=== PATIENT | female | born 1955 | race Caucasian/White ===

== ENCOUNTER 2017-06-26 11:09 | Emergency (ER) | payer MEDICAID ==
[2017-06-26 11:11] VITALS: BP 128/78
== END 2017-06-26 15:23 | disposition home or self-care (01) ==
LOC: ED 11:09
DX: S46.912A Strain of unspecified muscle, fascia and tendon at shoulder and upper arm level, left arm, initial encounter (principal); S80.212A Abrasion, left knee, initial encounter; W01.0XXA Fall on same level from slipping, tripping and stumbling without subsequent striking against object, initial encounter; Y93.02 Activity, running; Y99.8 Other external cause status; Y92.89 Other specified places as the place of occurrence of the external cause
CPT/HCPCS: 90715

== ENCOUNTER 2017-07-06 14:59 | Emergency (ER) | payer MEDICAID ==
[~2017-07-06] VITALS: Ht 157.5 cm; Wt 67.6 kg
[2017-07-06 16:57] VITALS: BP 142/66
== END 2017-07-06 16:57 | disposition home or self-care (01) ==
LOC: ED 14:59
DX: M54.5 Low back pain (principal); R03.0 Elevated blood-pressure reading, without diagnosis of hypertension
CPT/HCPCS: J1885

== ENCOUNTER 2018-04-19 10:03 | Emergency (ER) | payer OTHER ==
[~2018-04-19] VITALS: Ht 157.5 cm; Wt 69.1 kg
[2018-04-19 10:25] VITALS: BP 145/76; Ht 157.5 cm; Wt 69.1 kg
== END 2018-04-19 14:43 | disposition home or self-care (01) ==
LOC: ED 10:03
DX: M25.512 Pain in left shoulder (principal); N64.4 Mastodynia; I10 Essential (primary) hypertension; Z90.710 Acquired absence of both cervix and uterus